=== PATIENT | male | born 1985 | race Hispanic/Latino ===

== ENCOUNTER 2017-11-01 22:29 | Emergency (ER) | payer MEDICAID, OTHER ==
[2017-11-01] MEDS ORDERED: CLINDAMYCIN HCL 150 MG CAP ONE (23:02)
[2017-11-01] MEDS ORDERED: SULFAMETHOX-TMP DS 800/160 TAB ONE (23:03)
[2017-11-01] MEDS ORDERED: TETANUS/DIPHTHERIA TOXOID [ADULT] 0.5 ML VIAL IM ONE ×2 (23:03→23:07)
== END 2017-11-01 23:20 | disposition home or self-care (01) ==
LOC: EDH 22:29
DX: S61.052A Open bite of left thumb without damage to nail, initial encounter (principal); S21.152A Open bite of left front wall of thorax without penetration into thoracic cavity, initial encounter; Z72.0 Tobacco use; Y04.1XXA Assault by human bite, initial encounter; Y93.89 Activity, other specified; Y92.89 Other specified places as the place of occurrence of the external cause; Y99.8 Other external cause status
CPT/HCPCS: 90471; 90714

== ENCOUNTER 2018-08-10 16:09 | Emergency (ER) | payer OTHER ==
[2018-08-10] MEDS ORDERED: IBUPROFEN 600 MG TABLET ONE (17:32)
== END 2018-08-10 17:37 | disposition home or self-care (01) ==
LOC: EDH 16:09
DX: S83.411A Sprain of medial collateral ligament of right knee, initial encounter (principal); Z72.0 Tobacco use; X58.XXXA Exposure to other specified factors, initial encounter; Y93.89 Activity, other specified; Y92.89 Other specified places as the place of occurrence of the external cause; Y99.8 Other external cause status
CPT/HCPCS: 73562

== ENCOUNTER 2019-11-03 19:07 | Emergency (ER) | payer OTHER ==
[2019-11-03] MEDS ORDERED: IBUPROFEN 600 MG TABLET ONE (19:14)
== END 2019-11-03 20:24 | disposition home or self-care (01) ==
LOC: EDH 19:07
DX: S62.626A Displaced fracture of middle phalanx of right little finger, initial encounter for closed fracture (principal); X50.9XXA Other and unspecified overexertion or strenuous movements or postures, initial encounter; Y93.89 Activity, other specified; Y92.69 Other specified industrial and construction area as the place of occurrence of the external cause; Y99.8 Other external cause status
CPT/HCPCS: 29130; 73140

== ENCOUNTER 2019-11-30 09:09 | Emergency (ER) | payer OTHER ==
[2019-11-30] MEDS ORDERED: KETOROLAC TROMETHAMINE 60 MG/2 ML VIAL ONE (09:52)
== END 2019-11-30 10:24 | disposition home or self-care (01) ==
LOC: EDH 09:09
DX: S62.626A Displaced fracture of middle phalanx of right little finger, initial encounter for closed fracture (principal); Z72.0 Tobacco use; X50.0XXA Overexertion from strenuous movement or load, initial encounter; Y93.89 Activity, other specified; Y92.488 Other paved roadways as the place of occurrence of the external cause; Y99.8 Other external cause status
CPT/HCPCS: 73140; 99283; J1885

== ENCOUNTER 2020-04-20 10:18 | Emergency (ER) | payer OTHER | END 2020-04-20 11:19 | disposition home or self-care (01) | LOC: EDH 10:18 | DX: S63.501A Unspecified sprain of right wrist, initial encounter (principal); Z72.0 Tobacco use; W18.39XA Other fall on same level, initial encounter; Y93.89 Activity, other specified; Y92.098 Other place in other non-institutional residence as the place of occurrence of the external cause; Y99.8 Other external cause status | CPT/HCPCS: 73110 ==